=== PATIENT | male | born 1950 | race Caucasian/White ===

== ENCOUNTER 2021-08-26 16:58 | Emergency (ER) | payer MEDICARE ==
[~2021-08-26] VITALS: Ht 185.4 cm; Wt 140.0 kg
[~2021-08-26 16:58] MED LIST: APIX5TAB3 PO; ATOR20TA PO; DIGO250T PO; DILT240C90 PO; DOCU-273 PO; DUTA0.5C40 PO; METF500T PO; METO-467 PO; PIOG45TA5 PO
[2021-08-26 17:29] LABS: COLOR,URINE BROWN (Yellow); UA COLLECTION TYPE VOIDED
[2021-08-26 17:30] LABS: CLARITY,URINE CLOUDY (Clear); GLUCOSE, URINE 500 mg/dl (Neg); KETONES,URINE NEGATIVE (Neg); LEUKOCYTE ESTERASE ,URINE NEGATIVE (Neg); NITRITES, URINE NEGATIVE (Neg); OCCULT BLOOD,URINE LARGE (Neg); PROTEIN,URINE 30 mg/dl (Neg); UROBILINOGEN,URINE 0.2 E.U/dL (0.2-1.0)
[2021-08-26 17:33] LABS: RBC,URINE TNTC /HPF (0-2); WBC,URINE 0-4 /HPF (0-4)
[2021-08-26 17:34] LABS: BACTERIA,URINE FEW /HPF (Neg); MUCUS STRANDS FEW /LPF (Neg); SQUAMOUS EPITHELIAL CELL,UR NONE SEEN /LPF (FEW)
[2021-08-26 17:42] LABS: BASOPHILS % (AUTO) 0.2 % (0-1); EOSINOPHILS # (AUTO) 0.1 X10'3 (0-0.9); EOSINOPHILS % (AUTO) 1.6 % (0-6); HEMATOCRIT 46.9 % (42.0-52.0); HEMOGLOBIN 15.5 g/dl (14.0-17.9); LYMPHOCYTES # (AUTO) 2.1 X10'3 (1.1-4.8); LYMPHOCYTES % (AUTO) 24.1 % (21-51); MEAN CORPUSCULAR HEMOGLOBIN 33.7 PG (27.0-31.0); MEAN CORPUSCULAR HGB CONC 33.1 g/dL (33.0-36.5); MEAN CORPUSCULAR VOLUME 101.8 FL (78-98); MEAN PLATELET VOLUME 9.1 FL (7.4-10.4); MONOCYTES # (AUTO) 0.8 X10'3 (0-0.9); MONOCYTES % (AUTO) 9.7 % (2-12); NEUTROPHILS # (AUTO) 5.6 X10'3 (1.8-7.7); NEUTROPHILS % (AUTO) 64.4 % (42-75); PLATELET COUNT 247 X10'3 (140-440); RED BLOOD COUNT 4.61 X10'6 (4.70-6.10); RED CELL DISTRIBUTION WIDTH 14.3 % (11.5-14.5); WHITE BLOOD COUNT 8.6 X10'3 (4.5-11.0)
[2021-08-26 17:55] LABS: ALANINE AMINOTRANSFERASE 28 U/L (12-78); ALBUMIN 3.7 G/DL (3.4-5.0); ALKALINE PHOSPHATASE 50 IU/L (46-116); ANION GAP 7 (8-16); ASPARTATE AMINO TRANSFERASE 13 U/L (10-37); BILIRUBIN,TOTAL 0.4 MG/DL (0.1-1.0); BLOOD UREA NITROGEN 41 MG/DL (7-18); BUN/CREATININE RATIO 25.6 (5.4-32.0); CALCIUM 8.8 MG/DL (8.5-10.1); CHLORIDE 105 MMOL/L (99-107); GLUCOSE 108 MG/DL (70-104); POTASSIUM 4.6 MMOL/L (3.5-5.1); SODIUM 137 MMOL/L (135-145); TOTAL CARBON DIOXIDE 24.8 MMOL/L (24-32); TOTAL PROTEIN 7.5 G/DL (6.4-8.2); eGFR 43 ML/MIN
[2021-08-26 21:57] VITALS: BP 115/87
== END 2021-08-26 21:59 | disposition home or self-care (01) ==
LOC: ER 16:59
DX: N28.9 Disorder of kidney and ureter, unspecified (principal); R31.9 Hematuria, unspecified; I48.91 Unspecified atrial fibrillation; I11.0 Hypertensive heart disease with heart failure; I50.9 Heart failure, unspecified; E78.00 Pure hypercholesterolemia, unspecified; E11.9 Type 2 diabetes mellitus without complications; Z87.442 Personal history of urinary calculi; Z95.0 Presence of cardiac pacemaker; Z98.890 Other specified postprocedural states; Z88.8 Allergy status to other drugs, medicaments and biological substances; Z88.5 Allergy status to narcotic agent; Z79.899 Other long term (current) drug therapy
CPT/HCPCS: 36415; 74176; 80053; 81001; 85025; 99284

== ENCOUNTER 2023-01-22 22:36 | Observation (INO) | payer MEDICARE ==
[~2023-01-22] VITALS: Ht 185.4 cm; Wt 148.0 kg
[2023-01-22 23:10] LABS: BASOPHILS # (AUTO) 0.1 X10'3 (0-0.2); BASOPHILS % (AUTO) 0.9 % (0-1); EOSINOPHILS # (AUTO) 0.1 X10'3 (0-0.9); EOSINOPHILS % (AUTO) 0.7 % (0-6); HEMATOCRIT 44.2 % (42.0-52.0); LYMPHOCYTES # (AUTO) 1.4 X10'3 (1.1-4.8); LYMPHOCYTES % (AUTO) 15.5 % (21-51); MEAN CORPUSCULAR HEMOGLOBIN 34.2 PG (27.0-31.0); MEAN CORPUSCULAR VOLUME 100.5 FL (78-98); MEAN PLATELET VOLUME 9.5 FL (7.4-10.4); MONOCYTES # (AUTO) 1.1 X10'3 (0-0.9); MONOCYTES % (AUTO) 11.8 % (2-12); NEUTROPHILS # (AUTO) 6.6 X10'3 (1.8-7.7); NEUTROPHILS % (AUTO) 71.1 % (42-75); PLATELET COUNT 199 X10'3 (140-440); RED BLOOD COUNT 4.39 X10'6 (4.70-6.10); RED CELL DISTRIBUTION WIDTH 14.1 % (11.5-14.5); WHITE BLOOD COUNT 9.3 X10'3 (4.5-11.0)
[2023-01-22 23:22] LABS: ALANINE AMINOTRANSFERASE 16 U/L (12-78); ALBUMIN 3.5 G/DL (3.4-5.0); ALKALINE PHOSPHATASE 58 IU/L (46-116); ANION GAP 12 (8-16); ASPARTATE AMINO TRANSFERASE 15 U/L (10-37); BILIRUBIN,TOTAL 0.2 MG/DL (0.1-1.0); BLOOD UREA NITROGEN 30 MG/DL (7-18); BUN/CREATININE RATIO 19.7 (10.0-20.0); CALCIUM 8.8 MG/DL (8.5-10.1); CHLORIDE 107 MMOL/L (99-107); CREATININE 1.52 MG/DL (0.60-1.10); GLUCOSE 157 MG/DL (70-104); SODIUM 143 MMOL/L (135-145); TOTAL PROTEIN 7.1 G/DL (6.4-8.2); eGFR 45 ML/MIN
[2023-01-22 23:31] LABS: MAGNESIUM 2.2 MG/DL (1.5-2.4)
[2023-01-22 23:36] LABS: POTASSIUM 4.2 MMOL/L (3.5-5.1)
[2023-01-23] MEDS ORDERED: magnesium Cl slow-release 64mg tablet PO PRN (02:40)
[2023-01-23] MEDS ORDERED: potassium Cl 20 mEq SR tablet PO PRN ×2 (02:40)
[2023-01-23] MEDS ORDERED: magnesium 2GM in 50ml NS 50 ML IV PRN (02:40)
[2023-01-23] MEDS ORDERED: acetaminophen 325mg tablet PO PRN (02:40)
[2023-01-23] MEDS ORDERED: magnesium 4gm in 100ml NS 100 ML IV PRN (02:40)
[2023-01-23] MEDS ORDERED: magnesium hydroxide 30ml (MOM) UD suspension PO PRN (02:40)
[2023-01-23] MEDS ORDERED: mag hydrox/Alum hydrox/simeth 30ml oral suspension PO PRN (02:40)
[2023-01-23] MEDS ORDERED: potassium Cl 40MEQ/1/2NS 520ml 520 ML IV PRN (02:40)
[2023-01-23] MEDS ORDERED: ondansetron/PF 4mg/2ml inj IV PRN (02:40)
[2023-01-23] MEDS ORDERED: SPIR25TA5 PO (04:22)
[2023-01-23] MEDS ORDERED: FINA5TAB11 PO (04:22)
[2023-01-23] MEDS ORDERED: DAPA10TA PO (04:22)
[2023-01-23] MEDS ORDERED: BUPR-317 PO (04:22)
[2023-01-23] MEDS ORDERED: CHOL100046 PO (04:22)
[2023-01-23] MEDS ORDERED: SACU1TAB PO (04:22)
[2023-01-23] MEDS ORDERED: PRAV40TA3 PO (04:22)
[2023-01-23] MEDS ORDERED: CYAN25003 SL (04:22)
[2023-01-23] MEDS ORDERED: UBID100T7 PO (04:22)
[2023-01-23] MEDS ORDERED: METO-539 PO (04:22)
[2023-01-23] MEDS ORDERED: ALLO300T2 PO (04:22)
[2023-01-23] MEDS ORDERED: FURO-150 PO (04:22)
[2023-01-23] MEDS ORDERED: METF-436 PO (04:22)
[2023-01-23] MEDS ORDERED: buproprion 150mg XL (24-hour) tablet PO SCH (08:00)
[2023-01-23] MEDS ORDERED: K and/or MAG REPLACEMENT MC SCH (08:00)
[2023-01-23] MEDS ORDERED: cyanocobalamin 500mcg tablet PO SCH (08:00)
[2023-01-23] MEDS ORDERED: apixaban 5mg tablet PO SCH (08:00)
[2023-01-23] MEDS ORDERED: metFORMIN 500mg tablet PO SCH (08:00)
[2023-01-23] MEDS ORDERED: furosemide 20MG tablet PO SCH (08:00)
[2023-01-23] MEDS ORDERED: UBIDECARENONE 100 MG PO SCH (08:00)
[2023-01-23] MEDS ORDERED: pravastatin 40mg tablet PO SCH (08:00)
[2023-01-23] MEDS ORDERED: sacubitril/valsartan 24mg-26mg tablet PO SCH (08:00)
[2023-01-23] MEDS ORDERED: buPROPion SR 150mg tablet PO SCH (08:00)
[2023-01-23] MEDS ORDERED: DAPAGLIFLOZIN 10MG TABLET PO SCH (08:00)
[2023-01-23] MEDS ORDERED: docusate sod 100mg capsule PO SCH (08:00)
[2023-01-23] MEDS ORDERED: spironolactone 25 MG tablet PO SCH (08:00)
[2023-01-23] MEDS: allopurinol 300 MG tablet PO SCH ×2 (08:46→13:00)
[2023-01-23 08:52] VITALS: BP 113/70
--- NOTE | 2023-01-23 13:20 | NUR ---
Pt report received from Alisa Lewis RN; Pt sitting up in bed eating meal tray provided by dietary; Pt family at bedside; Pt refuses scheduled Allopurinol, stating that it is a prescription that his PCP did not renew; Pt A&O x 4; Respirtions even and unlabored; Conversing in full sentences; No current complaints; No needs voiced
[2023-01-23] MEDS ORDERED: METO100T7 PO (14:59)
[2023-01-23] MEDS ORDERED: metoprolol succinate 25mg (24-HOUR) SR. Tablet PO ONE (15:00)
[2023-01-23] MEDS ORDERED: finasteride 5mg tablet PO SCH (21:00)
[2023-01-23] MEDS ORDERED: metoprolol succinate 25mg (24-HOUR) SR. Tablet PO SCH (21:00)
== END 2023-01-23 18:51 | disposition home or self-care (01) ==
LOC: ER 22:39 → ED HOLD 01-23 03:11 → ORTHO 4S 01-23 08:53
PROVIDERS: ADMIT Internal Medicine; ATTEND Internal Medicine
DX: I48.91 Unspecified atrial fibrillation (principal); I25.10 Atherosclerotic heart disease of native coronary artery without angina pectoris; E11.9 Type 2 diabetes mellitus without complications; M19.90 Unspecified osteoarthritis, unspecified site; G47.33 Obstructive sleep apnea (adult) (pediatric); I11.0 Hypertensive heart disease with heart failure; I35.0 Nonrheumatic aortic (valve) stenosis; I50.9 Heart failure, unspecified; E78.00 Pure hypercholesterolemia, unspecified; I47.1 Supraventricular tachycardia; M47.9 Spondylosis, unspecified; Z79.01 Long term (current) use of anticoagulants; Z79.84 Long term (current) use of oral hypoglycemic drugs; Z79.899 Other long term (current) drug therapy; Z87.442 Personal history of urinary calculi; Z95.810 Presence of automatic (implantable) cardiac defibrillator; Z87.891 Personal history of nicotine dependence; Z95.1 Presence of aortocoronary bypass graft; Z95.2 Presence of prosthetic heart valve; Z96.651 Presence of right artificial knee joint
CPT/HCPCS: 36415; 71045; 80053; 82948; 83735; 83880; 84100; 84132; 84484; 85025; 99284; G0378